=== PATIENT | female | born 1975 | race Caucasian/White ===

== ENCOUNTER 2016-06-04 07:57 | Emergency (ER) | payer OTHER ==
[~2016-06-04] VITALS: Ht 170.2 cm; Wt 99.8 kg
[2016-06-04] MEDS ORDERED: IBUPROFEN 600600 M1 PO (08:55)
[2016-06-04] MEDS ORDERED: NORCO 5-325 TA1 EACH PO (08:55)
[2016-06-04 09:07] VITALS: BP 148/82
== END 2016-06-04 09:14 ==
LOC: ER 07:57
DX: S40.011A Contusion of right shoulder, initial encounter (principal); W01.0XXA Fall on same level from slipping, tripping and stumbling without subsequent striking against object, initial encounter; Y93.89 Activity, other specified; Y92.89 Other specified places as the place of occurrence of the external cause; Y99.8 Other external cause status